=== PATIENT | male | born 1935 | race Caucasian/White ===

== ENCOUNTER → 2019-12-29 11:37 | Outpatient (CLI) | payer MEDICARE, OTHER, SELFPAY ==
[2020-01-02 14:07] LABS: Complement C3 87 mg/dL
[2020-01-02 15:08] LABS: ANA Screen, IFA NEGATIVE (NEGATIVE)
[2020-01-02 18:04] LABS: DNA (DS) Antibody <1 IU/mL
== END ==
PROVIDERS: PCP Internal Medicine; Referring Provider Internal Medicine; Visit Provider Internal Medicine
DX: R80.9 Proteinuria, unspecified (principal)
CPT/HCPCS: 36415; 83516; 83520; 86038; 86160; 86225; 86256

== ENCOUNTER 2020-02-09 04:23 | Emergency (ER) | payer MEDICARE, OTHER, SELFPAY ==
[2020-02-09] VITALS (20 sets, daily range): BP systolic 99–194; BP diastolic 56–116; PULSE 46–125; RESP 18–101; TEMP 36.3; O2SAT 93–121
--- NOTE | 2020-02-09 04:26 | DI.RAD.S_ITS ---
PROCEDURE: XR CHEST 1V INDICATIONS: labored breathing, possible pulmonary edema TECHNIQUE: One view of the chest was acquired. COMPARISON: [facility], CR, XR CHEST 2 VIEWS, 11/29/2019, 13:16. FINDINGS: Surgical changes and devices: None. Lungs and pleura: Extensive bilateral airspace consolidation. This is progressed from the prior study. No pleural effusions or pneumothorax. Mediastinum: Mediastinal contours appear normal. Cardiomegaly. Bones and chest wall: No suspicious bony lesions. Overlying soft tissues appear unremarkable. IMPRESSION: Interval progression of congestive heart failure. Dictated by: Giancarlo Barahona M.D. on 02/09/2020 at 7:44 Approved by: Giancarlo Barahona M.D. on 02/09/2020 at 7:45
[2020-02-09] MEDS: dilTIAZem 5 MG/ML SDV 10 MG IV (04:38)
[2020-02-09] MEDS: FUROSEMIDE 40 MG/4 ML VIAL IV (04:40)
[2020-02-09 04:53] LABS: Add Manual Diff / Slide Review NO; Basophils Absolute Auto 100 /uL (0-100); Basophils Percent Auto 0.5 % (0-2); Eosinophils Absolute Auto 0 /uL (0-450); Eosinophils Percent Auto 0.2 % (2-4); Hemoglobin 12.2 g/dL (13.5-17.5); Lymphocytes Absolute Auto 2800 /uL (1100-4500); Lymphocytes Percent Auto 17.2 % (25-40); Mean Corpuscular HGB Conc 32.1 % (30-36); Mean Corpuscular Hemoglobin 28.2 PG (26-34); Monocytes Absolute Auto 500 /uL (0-900); Monocytes Percent Auto 2.9 % (3-14); Neutrophils Absolute Auto 13000 /uL (1500-7000); Neutrophils Percent Auto 79.2 % (50-75); PCO2 ABG 30.5 mmHg (35-45); PO2 ABG 81 mmHg (80-100); Platelet Count 284 X10^3/uL (150-400); Red Blood Cell Count 4.32 X10^6/uL (4.5-5.9); Red Cell Distribution Width 16.6 % (11.6-14.8); White Blood Cell Count 16.4 X10^3/uL (4.5-11.0); pH ABG 7.36 (7.35-7.45)
[2020-02-09 04:54] LABS: Fractionated Inspired Oxygen 50; HCO3 ABG 17 mmol/L (22-26); Oxygen Saturation ABG 96 % (95-100); TCO2 ABG 18 mmol/L (21-31)
[2020-02-09 05:02] LABS: INR 1.2 (0.9-1.3)
[2020-02-09 05:04] LABS: PTT Partial Thromboplastin Tim 33 SECONDS (26.4-36.2)
[2020-02-09 05:07] LABS: Creatine Kinase 41 U/L (55-170)
[2020-02-09 05:08] LABS: Alanine Aminotransferase 26 IU/L (<50); Albumin 3.9 g/dL (3.5-5.0); Albumin Globulin Ratio 1.2 (1.0-2.8); Alkaline Phosphatase 166 U/L (38-126); Aspartate Aminotransferase 47 IU/L (17-59); BUN Creatinine Ratio 32.7 (6-22); Bilirubin Total 1.1 mg/dL (0.2-1.3); Blood Urea Nitrogen 34 mg/dL (9-20); Calcium 9.3 mg/dL (8.4-10.2); Carbon Dioxide 20 mmol/L (22-32); Chloride 102 mmol/L (98-107); Estimated Glomerular Filt Rate > 60.0 mL/min (>60); Globulin 3.3 g/dL (1.7-4.1); Glucose 215 mg/dL (80-110); HEMOLYSIS < 15 (0-50); Lactate Dehydrogenase 571 U/L (313-618); Potassium 4.2 mmol/L (3.4-5.1); Sodium 136 mmol/L (137-145); Total Protein 7.2 g/dL (6.3-8.2)
[2020-02-09 05:13] LABS: Lactate (Lactic Acid) 4.1 mmol/L (0.7-2.1)
[2020-02-09 05:20] LABS: NT-proBNP (BNP-Adult 18+) 16600 pg/mL (<450); Troponin I 0.037 ng/mL (0.01-0.034)
[2020-02-09] MEDS: LORazepam 2 MG/ML INJ 1 MG IV (05:28)
[2020-02-09] MEDS: MORPHINE 4 MG/ML INJ IV (05:28)
[2020-02-09 06:05] LABS: Influenza A - CEPHEID Flu A NEGATIVE (NEGATIVE); Influenza B - CEPHEID Flu B NEGATIVE (NEGATIVE)
[2020-02-09 06:07] LABS: Bacteria Urine None Seen; RBC Urine None Seen (0-5/HPF); WBC Urine None Seen (0-5/HPF)
[2020-02-09 06:08] LABS: Appearance Urine UA CLEAR; Bilirubin Urine UA NEGATIVE (NEGATIVE); Color Urine UA YELLOW; Glucose Urine UA NEGATIVE (Negative); Ketones Urine UA NEGATIVE (NEGATIVE); Leukocyte Esterase Urine UA NEGATIVE (NEGATIVE); Nitrite Urine UA NEGATIVE (Negative); Occult Blood Urine UA NEGATIVE (Negative); Protein Urine UA NEGATIVE (Negative); Specific Gravity Urine UA 1.015 (1.000-1.035); Urobilinogen Urine UA 0.2 E.U./dL (0.2)
[2020-02-09 06:34] LABS: Culture Indicated Urine Cult Not Indicated
--- NOTE | 2020-02-09 06:34 | ED_ITS ---
HPI - Chest Pain General Chief Complaint: Shortness of Breath/Dyspnea Stated Complaint: Flash Pulmonary Edema Time Seen by Provider: 02/09/20 04:30 History of Present Illness HPI narrative: HPI: The patient is an 84-year-old male who was transferred to the emergency department by EMS on BiPAP after the patient presented with flash pulmonary edema. The patient is on Eliquis with atrial fibrillation. The patient had acute rapid atrial fibrillation per the paramedics with frothy blood -tinged sputum. The patient was so short of breath he was unable to provide any significant history on his own. At this time the patient states that he has had a recent sinus infection with a persistent cough that has been on antibiotics per his primary care physician. He denies any chest pain. He just complains of shortness of breath and difficulty in breathing. He denies any fever chills or sweats as well as any headache. He has had sinus congestion and nasal drainage. He has had a cough that has been nonproductive of any sputum until tonight when he developed his acute shortness of breath. He has had rapid heart rate with palpitations and has been intermittently dizzy lightheaded and exhausted. He has had no abdominal pain nausea or vomiting or any urinary symptoms. Related Data Allergies Allergy/AdvReac Type Severity Reaction Status Date / Time No Known Drug Allergies Allergy Verified 02/09/20 04:47 Review of Systems Review of Systems Narrative: His review of systems were all negative that we could obtain other than those mentioned in the history of present illness. Exam Narrative Exam Narrative: PHYSICAL EXAM: CONSTITUTIONAL: Awake, Alert, in acute respiratory extremis on BiPAP. The patient looks ill HEAD: AT/NC EENT: PERRL, FROM of eyes, no discharge, No epistaxis or nasal drainage Oral mucosa is moist and pink, posterior pharynx is without erythema or exudate. The patient is coughing with pink frothy sputum. NECK: Supple, there are is jugular venous distention., Trachea is midline without stridor, no palpable LN . SPINE: No gross deformity, no palpable tenderness of the cervical, thoracic, lum bar or sacral spine. No CVA tenderness. THORAX: No deformity, retractions, chest wall tenderness, LUNGS: Diffuse inspiratory crackles with diffuse expiratory all rhonchi and chest congestion with rattling. HEART: Irregular irregular heart distant no appreciable murmur tachycardic and very irregular ABDOMEN: Soft, non-tender, normal bowel sounds without guarding, rebound, rigidity or palpable mass EXTREMITIES: No cyanosis or tender but there is trace to 1+ pitting edema of the lower extremities. SKIN: No rash, bruising, petechiae or purpura. NEURO: Awake, alert, conversive, cranial nerves II-XII are symmetrical and normal, moves all 4 extremities Initial Vital Signs Initial Vital Signs: Vital Signs Blood Pressure 179/116 H 02/09/20 04:50 Course Course Course Narrative: 0620 completed inserting a right subclavian IV. X-ray checked up on position reveals that the catheters going up the patient's neck into his of right eye internal jugular vein. I will attempt repositioning at. At 5:17 a.m. I discussed the patient with his direct marketing intern Dr. Brito who recommended that I call the transfer center and have the patient admitted to the intensive care unit at [facility]. According to the transfer center [facility] has no intensive care unit beds they are all being used to treat patients with Covid -19. I discussed the patient with the patient's and she prefers that we try admitting the patient to [facility] Intensive Care Unit. They have been called. 0655 CXR read by the [facility] Radiology revealed cardiomegaly . Pericardial effusion can provide the same appearance. Mixed interstitial and alveolar infiltrates bilaterally may represent pulmonary edema. Small right pleural effusion. Pneumonia cannot be ruled out. Influenza a and influenza B are negative. A repeat lactic acid has been ordered on the patient. Two blood cultures will be obtained on the patient. The patient will be administered Rocephin and Zithromax IV in case the patient has a combination of pulmonary edema and pneumonia. [address] [facility] was called to find out if they would accept patient. The patient will require intensive care unit. 0754: Spoke with the admitting hospitalist at [facility] Dr. Parikh who states that this patient sounds very complicated and more complicated than a routine ICU patient. He states that he is going to have the inspector balance bridge call because the patient may be to complicated for their intensive care unit. A summary of his laboratories at this time reveals that he has an initial white blood count of 16.4 1079% neutrophils 17.2% lymphocytes. His arterial blood ga ses revealed a pH is 7.36 a pCO2 of 30.5 a PO2 of 81 oxygen saturation 96% FiO2 50% on BiPAP. His creatinine is greater than 60 lactate was initially 4.1 and has significantly improved to 1.8. The patient's troponin is elevated at 0.[address] segment changes on the EKG suggesting a non STEMI. The patient's CPK is 41. The patient is already on Eliquis. His procalcitonin is less than 0.0 5 . [place] [address]. Barrientos virus swab remains pending however influenza a and influenza B were negative. Clinically the patient has what appears to be flash pulmonary edema with acute congestive heart failure. However, because his white blood count is elevated lactic acid was initially elevated the patient was treated as though he may be having patchy pneumonia with possible pulmonary infection, the patient was administered 1 g of ceftriaxone and 500 of Zithromax. The patient did have a transient cardiac arrest with V-tach and arm collapse becoming unresponsive. 2-3 compressions of CPR was initiated and the patient woke up and regained consciousness. The patient was loaded with 150 mg of amiodarone followed by an amiodarone infusion at 1 milligram/minute. To reduce the afterload the patient's blood pressure was 175 systolic torr, 10 mg of hydralazine was administered to the patient and his blood pressure dropped and improved initially to 150-145. I discussed the patient with [facility] intensive care doctor, Dr. Lo who has accepted the patient being transferred to their institution an admitted to the intensive care unit. We have 2 functioning peripheral IVs on the patient. I informed that I placed a right subclavian triple-lumen catheter, however it went up the internal jugular. He recommends that we pull it as long as the patient has 2 functioning peripheral IVs. Orders Ordered: ED Orders 02/09/20 04:25 EKG-12 Lead Stat 02/09/20 04:26 XR chest 1V Stat 02/09/20 04:40 Alanine Aminotransferase Stat C-Reactive Protein Quant Stat Complete Blood Count AUTO DIFF Stat Comprehensive Metabolic Panel Stat Creatine Kinase Stat Ferritin Stat Lactate (Lactic Acid) Stat Lactate Dehydrogenase Stat Magnesium Stat NT-proBNP (BNP-Adult 18+) Stat Partial Thromboplastin Time Stat Procalcitonin Stat Prothrombin Time INR Stat Troponin I Stat 02/09/20 04:42 Arterial Blood Gas Stat 02/09/20 04:50 BiPAP Ventilatory Support RT PROTOCOL 02/09/20 05:10 Type and Screen Stat 02/09/20 05:20 Influenza A & B (PCR) Stat 02/09/20 05:26 UA Complete [Urinalysis and Microscopic] Stat 02/09/20 06:08 XR chest 1V Stat 02/09/20 07:01 Blood Culture Stat 02/09/20 07:28 EKG-12 Lead Stat Amiodarone HCl/Dextrose (Nexterone) 360 mg in 200 mls @ 33.333 mls/hr IV NOW ONE; Protocol Stop: 02/09/20 11:08 Discontinued Medications Diltiazem HCl (Cardizem) 10 mg IV NOW ONE Stop: 02/09/20 04:32 Last Admin: 02/09/20 04:38 Dose: 10 mg Documented by: IRENE Furosemide (Lasix) 40 mg IV NOW ONE Stop: 02/09/20 04:33 Furosemide (Lasix) 60 mg IV NOW ONE Stop: 02/09/20 05:40 Hydralazine HCl (Apresoline) 20 mg IV NOW ONE Stop: 02/09/20 05:22 Ceftriaxone Sodium/Dextrose (Rocephin) 1 gm in 50 mls @ 100 mls/hr IV NOW ONE Stop: 02/09/20 07:31 Azithromycin 500 mg/ Dextrose 250 mls @ 250 mls/hr IV NOW ONE Stop: 02/09/20 07:02 Lidocaine HCl (Xylocaine 1%) 20 ml INJ NOW ONE Stop: 02/09/20 05:22 Last Admin: 02/09/20 06:14 Dose: Not Given Documented by: IRENE Lidocaine HCl (Xylocaine 1% (Pf)) 10 ml INJ NOW ONE Stop: 02/09/20 06:38 Lorazepam (Ativan) 1 mg IV NOW ONE Stop: 02/09/20 05:23 Last Admin: 02/09/20 05:28 Dose: 1 mg Documented by: IRENE Methylprednisolone (Solu-Medrol 125 Mg Vial) 125 mg IV NOW ONE Stop: 02/09/20 07:15 Methylprednisolone (Solu-Medrol 125 Mg Vial) 125 mg IV NOW ONE Stop: 02/09/20 07:49 Morphine Sulfate (Morphine) 4 mg IV NOW ONE Stop: 02/09/20 05:23 Last Admin: 02/09/20 05:28 Dose: 4 mg Documented by: [email or web address] Nitroglycerin (Nitro-Bid) 1 inch TOP NOW ONE Stop: 02/09/20 04:33 Vital Signs Vital signs: Vital Signs - 8 hr 02/09/20 04:50 02/09/20 05:03 02/09/20 05:05 Pulse Rate 105 H 100 H Respiratory Rate 48 H 43 H Blood Pressure 179/116 H Blood Pressure [Left Arm] 172/79 H 164/91 H Pulse Oximetry 97 97 02/09/20 05:10 02/09/20 05:20 02/09/20 05:30 Pulse Rate 111 H 107 H 109 H Respiratory Rate 43 H 46 H 42 H Blood Pressure Blood Pressure [Left Arm] 168/109 H 169/84 H 194/86 H Pulse Oximetry 121 H 98 98 02/09/20 05:35 02/09/20 05:45 02/09/20 05:50 Pulse Rate 109 H 101 H 101 H Respiratory Rate 42 H 42 H 101 H Blood Pressure Blood Pressure [Left Arm] 173/94 H 159/83 H 150/69 H Pulse Oximetry 98 99 98 02/09/20 05:55 02/09/20 06:08 Pulse Rate 98 H 46 L Respiratory Rate 40 H 46 H Blood Pressure Blood Pressure [Left Arm] 121/65 181/92 H Pulse Oximetry 99 98 MDM - Chest Pain Medical Records Data Attestation: I reviewed the patient's medical records. Lab Data Attestation: I reviewed the patient's lab results. Result diagrams: 02/09/20 04:40 02/09/20 04:40 Labs: Lab Results 02/09/20 02/09/20 02/09/20 Range/Units 04:40 04:40 04:40 WBC 16.4 H (4.5-11.0) X10^3/uL RBC 4.32 L (4.5-5.9) X10^6/uL Hgb 12.2 L (13.5-17.5) g/dL Hct 38.0 L (41-53) % MCV 88.0 (80-100) fL MCH 28.2 (26-34) PG MCHC 32.1 (30-36) % RDW 16.6 H (11.6-14.8) % Plt Count 284 (150-400) X10^3/uL Neut % (Auto) 79.2 H (50-75) % Lymph % (Auto) 17.2 L (25-40) % [place] % (Auto) 2.9 L (3-14) % Eos % (Auto) 0.2 L (2-4) % Baso % (Auto) 0.5 (0-2) % Neut # (Auto) 51047 H (3893-3071) /uL Lymph # (Auto) 2800 (0741-1880) /uL [place] # (Auto) 500 (0-900) /uL Eos # (Auto) 0 (0-450) /uL Baso # (Auto) 100 (0-100) /uL PT (10.1-12.7) SECONDS INR (0.9-1.3) APTT (26.4-36.2) SECONDS ABG pH (7.35-7.45) ABG pCO2 (35-45) mmHg ABG pO2 (80-100) mmHg ABG HCO3 (22-26) mmol/L ABG Total CO2 (21-31) mmol/L ABG O2 Saturation (95-100) % ABG Base Excess (-2-2) mmol/L FiO2 Sodium 136 L (137-145) mmol/L Potassium 4.2 (3.4-5.1) mmol/L Chloride 102 (98-107) mmol/L Carbon Dioxide 20 L (22-32) mmol/L BUN 34 H (9-20) mg/dL Creatinine 1.04 (0.66-1.25) mg/dL Estimated GFR > 60.0 (>60) mL/min BUN/Creatinine Ratio 32.7 H (6-22) Glucose 215 H (80-110) mg/dL Lactate (0.7-2.1) mmol/L Calcium 9.3 (8.4-10.2) mg/dL Magnesium 2.0 (1.6-2.3) mg/dL Total Bilirubin 1.1 (0.2-1.3) mg/dL AST 47 (17-59) IU/L ALT 26 (<50) IU/L Alkaline Phosphatase 166 H (38-126) U/L Lactate Dehydrogenase (313-618) U/L Total Creatine Kinase 41 L (55-170) U/L Troponin I 0.037 H (0.01-0.034) ng/mL C-Reactive Protein (<1.0) mg/dL NT-Pro-B Natriuret Pep 72695 H (<450) pg/mL Total Protein 7.2 (6.3-8.2) g/dL Albumin 3.9 (3.5-5.0) g/dL Globulin 3.3 (1.7-4.1) g/dL Albumin/Globulin Ratio 1.2 (1.0-2.8) Procalcitonin (<0.5) ng/mL Urine Color Urine Appearance Urine pH (4.5-8.0) Ur Specific [place] (1.000-1.035) Urine Protein (Negative) Urine Glucose (UA) (Negative) g/dL Urine Ketones (NEGATIVE) Urine Occult Blood (Negative) Urine Nitrate (Negative) Urine Bilirubin (NEGATIVE) Urine Urobilinogen (0.2) E.U./dL Ur Leukocyte Esterase (NEGATIVE) Urine RBC (0-5/HPF) Urine WBC (0-5/HPF) Urine Bacteria (None) Ur Culture Indicated? Influenza A (RT-PCR) (NEGATIVE) Influenza B (RT-PCR) (NEGATIVE) Blood Type Antibody Screen 02/09/20 02/09/20 02/09/20 Range/Units 04:40 04:40 04:40 WBC (4.5-11.0) X10^3/uL RBC (4.5-5.9) X10^6/uL Hgb (13.5-17.5) g/dL Hct (41-53) % MCV (80-100) fL MCH (26-34) PG MCHC (30-36) % RDW (11.6-14.8) % Plt Count (150-400) X10^3/uL Neut % (Auto) (50-75) % Lymph % (Auto) (25-40) % [place] % (Auto) (3-14) % Eos % (Auto) (2-4) % Baso % (Auto) (0-2) % Neut # (Auto) (1436-2992) /uL Lymph # (Auto) (2184-5851) /uL [place] # (Auto) (0-900) /uL Eos # (Auto) (0-450) /uL Baso # (Auto) (0-100) /uL PT 14.0 H (10.1-12.7) SECONDS INR 1.2 (0.9-1.3) APTT 33 (26.4-36.2) SECONDS ABG pH (7.35-7.45) ABG pCO2 (35-45) mmHg ABG pO2 (80-100) mmHg ABG HCO3 (22-26) mmol/L ABG Total CO2 (21-31) mmol/L ABG O2 Saturation (95-100) % ABG Base Excess (-2-2) mmol/L FiO2 Sodium (137-145) mmol/L Potassium (3.4-5.1) mmol/L Chloride (98-107) mmol/L Carbon Dioxide (22-32) mmol/L BUN (9-20) mg/dL Creatinine (0.66-1.25) mg/dL Estimated GFR (>60) mL/min BUN/Creatinine Ratio (6-22) Glucose (80-110) mg/dL Lactate 4.1 H* (0.7-2.1) mmol/L Calcium (8.4-10.2) mg/dL Magnesium (1.6-2.3) mg/dL Total Bilirubin (0.2-1.3) mg/dL AST (17-59) IU/L ALT (<50) IU/L Alkaline Phosphatase (38-126) U/L Lactate Dehydrogenase 571 (313-618) U/L Total Creatine Kinase (55-170) U/L Troponin I (0.01-0.034) ng/mL C-Reactive Protein (<1.0) mg/dL NT-Pro-B Natriuret Pep (<450) pg/mL Total Protein (6.3-8.2) g/dL Albumin (3.5-5.0) g/dL Globulin (1.7-4.1) g/dL Albumin/Globulin Ratio (1.0-2.8) Procalcitonin (<0.5) ng/mL Urine Color Urine Appearance Urine pH (4.5-8.0) Ur Specific [place] (1.000-1.035) Urine Protein (Negative) Urine Glucose (UA) (Negative) g/dL Urine Ketones (NEGATIVE) Urine Occult Blood (Negative) Urine Nitrate (Negative) Urine Bilirubin (NEGATIVE) Urine Urobilinogen (0.2) E.U./dL Ur Leukocyte Esterase (NEGATIVE) Urine RBC (0-5/HPF) Urine WBC (0-5/HPF) Urine Bacteria (None) Ur Culture Indicated? Influenza A (RT-PCR) (NEGATIVE) Influenza B (RT-PCR) (NEGATIVE) Blood Type Antibody Screen 02/09/20 02/09/20 02/09/20 Range/Units 04:40 04:40 04:42 WBC (4.5-11.0) X10^3/uL RBC (4.5-5.9) X10^6/uL Hgb (13.5-17.5) g/dL Hct (41-53) % MCV (80-100) fL MCH (26-34) PG MCHC (30-36) % RDW (11.6-14.8) % Plt Count (150-400) X10^3/uL Neut % (Auto) (50-75) % Lymph % (Auto) (25-40) % [place] % (Auto) (3-14) % Eos % (Auto) (2-4) % Baso % (Auto) (0-2) % Neut # (Auto) (4471-3918) /uL Lymph # (Auto) (0276-0199) /uL [place] # (Auto) (0-900) /uL Eos # (Auto) (0-450) /uL Baso # (Auto) (0-100) /uL PT (10.1-12.7) SECONDS INR (0.9-1.3) APTT (26.4-36.2) SECONDS ABG pH 7.36 (7.35-7.45) ABG pCO2 30.5 L (35-45) mmHg ABG pO2 81 (80-100) mmHg ABG HCO3 17 L (22-26) mmol/L ABG Total CO2 18 L (21-31) mmol/L ABG O2 Saturation 96 (95-100) % ABG Base Excess -8.0 L (-2-2) mmol/L FiO2 50 Sodium (137-145) mmol/L Potassium (3.4-5.1) mmol/L Chloride (98-107) mmol/L Carbon Dioxide (22-32) mmol/L BUN (9-20) mg/dL Creatinine (0.66-1.25) mg/dL Estimated GFR (>60) mL/min BUN/Creatinine Ratio (6-22) Glucose (80-110) mg/dL Lactate (0.7-2.1) mmol/L Calcium (8.4-10.2) mg/dL Magnesium (1.6-2.3) mg/dL Total Bilirubin (0.2-1.3) mg/dL AST (17-59) IU/L ALT 26 (<50) IU/L Alkaline Phosphatase (38-126) U/L Lactate Dehydrogenase (313-618) U/L Total Creatine Kinase (55-170) U/L Troponin I (0.01-0.034) ng/mL C-Reactive Protein 0.7 (<1.0) mg/dL NT-Pro-B Natriuret Pep (<450) pg/mL Total Protein (6.3-8.2) g/dL Albumin (3.5-5.0) g/dL Globulin (1.7-4.1) g/dL Albumin/Globulin Ratio (1.0-2.8) Procalcitonin < 0.05 (<0.5) ng/mL Urine Color Urine Appearance Urine pH (4.5-8.0) Ur Specific [place] (1.000-1.035) Urine Protein (Negative) Urine Glucose (UA) (Negative) g/dL Urine Ketones (NEGATIVE) Urine Occult Blood (Negative) Urine Nitrate (Negative) Urine Bilirubin (NEGATIVE) Urine Urobilinogen (0.2) E.U./dL Ur Leukocyte Esterase (NEGATIVE) Urine RBC (0-5/HPF) Urine WBC (0-5/HPF) Urine Bacteria (None) Ur Culture Indicated? Influenza A (RT-PCR) (NEGATIVE) Influenza B (RT-PCR) (NEGATIVE) Blood Type Antibody Screen 02/09/20 02/09/20 02/09/20 Range/Units 05:10 05:20 05:26 WBC (4.5-11.0) X10^3/uL RBC (4.5-5.9) X10^6/uL Hgb (13.5-17.5) g/dL Hct (41-53) % MCV (80-100) fL MCH (26-34) PG MCHC (30-36) % RDW (11.6-14.8) % Plt Count (150-400) X10^3/uL Neut % (Auto) (50-75) % Lymph % (Auto) (25-40) % [place] % (Auto) (3-14) % Eos % (Auto) (2-4) % Baso % (Auto) (0-2) % Neut # (Auto) (9862-4506) /uL Lymph # (Auto) (7782-4917) /uL [place] # (Auto) (0-900) /uL Eos # (Auto) (0-450) /uL Baso # (Auto) (0-100) /uL PT (10.1-12.7) SECONDS INR (0.9-1.3) APTT (26.4-36.2) SECONDS ABG pH (7.35-7.45) ABG pCO2 (35-45) mmHg ABG pO2 (80-100) mmHg ABG HCO3 (22-26) mmol/L ABG Total CO2 (21-31) mmol/L ABG O2 Saturation (95-100) % ABG Base Excess (-2-2) mmol/L FiO2 Sodium (137-145) mmol/L Potassium (3.4-5.1) mmol/L Chloride (98-107) mmol/L Carbon Dioxide (22-32) mmol/L BUN (9-20) mg/dL Creatinine (0.66-1.25) mg/dL Estimated GFR (>60) mL/min BUN/Creatinine Ratio (6-22) Glucose (80-110) mg/dL Lactate (0.7-2.1) mmol/L Calcium (8.4-10.2) mg/dL Magnesium (1.6-2.3) mg/dL Total Bilirubin (0.2-1.3) mg/dL AST (17-59) IU/L ALT (<50) IU/L Alkaline Phosphatase (38-126) U/L Lactate Dehydrogenase (313-618) U/L Total Creatine Kinase (55-170) U/L Troponin I (0.01-0.034) ng/mL C-Reactive Protein (<1.0) mg/dL NT-Pro-B Natriuret Pep (<450) pg/mL Total Protein (6.3-8.2) g/dL Albumin (3.5-5.0) g/dL Globulin (1.7-4.1) g/dL Albumin/Globulin Ratio (1.0-2.8) Procalcitonin (<0.5) ng/mL Urine Color Yellow Urine Appearance Clear Urine pH 5.0 (4.5-8.0) Ur Specific [place] 1.015 (1.000-1.035) Urine Protein Negative (Negative) Urine Glucose (UA) Negative (Negative) g/dL Urine Ketones Negative (NEGATIVE) Urine Occult Blood Negative (Negative) Urine Nitrate Negative (Negative) Urine Bilirubin Negative (NEGATIVE) Urine Urobilinogen 0.2 (0.2) E.U./dL Ur Leukocyte Esterase Negative (NEGATIVE) Urine RBC None seen (0-5/HPF) Urine WBC None seen (0-5/HPF) Urine Bacteria None seen (None) Ur Culture Indicated? Cult not indicated Influenza A (RT-PCR) Flu a negative (NEGATIVE) Influenza B (RT-PCR) Flu b negative (NEGATIVE) Blood Type B Positive Antibody Screen Negative 02/09/20 Range/Units 06:35 WBC (4.5-11.0) X10^3/uL RBC (4.5-5.9) X10^6/uL Hgb (13.5-17.5) g/dL Hct (41-53) % MCV (80-100) fL MCH (26-34) PG MCHC (30-36) % RDW (11.6-14.8) % Plt Count (150-400) X10^3/uL Neut % (Auto) (50-75) % Lymph % (Auto) (25-40) % [place] % (Auto) (3-14) % Eos % (Auto) (2-4) % Baso % (Auto) (0-2) % Neut # (Auto) (1309-3382) /uL Lymph # (Auto) (4050-9331) /uL [place] # (Auto) (0-900) /uL Eos # (Auto) (0-450) /uL Baso # (Auto) (0-100) /uL PT (10.1-12.7) SECONDS INR (0.9-1.3) APTT (26.4-36.2) SECONDS ABG pH (7.35-7.45) ABG pCO2 (35-45) mmHg ABG pO2 (80-100) mmHg ABG HCO3 (22-26) mmol/L ABG Total CO2 (21-31) mmol/L ABG O2 Saturation (95-100) % ABG Base Excess (-2-2) mmol/L FiO2 Sodium (137-145) mmol/L Potassium (3.4-5.1) mmol/L Chloride (98-107) mmol/L Carbon Dioxide (22-32) mmol/L BUN (9-20) mg/dL Creatinine (0.66-1.25) mg/dL Estimated GFR (>60) mL/min BUN/Creatinine Ratio (6-22) Glucose (80-110) mg/dL Lactate 1.8 (0.7-2.1) mmol/L Calcium (8.4-10.2) mg/dL Magnesium (1.6-2.3) mg/dL Total Bilirubin (0.2-1.3) mg/dL AST (17-59) IU/L ALT (<50) IU/L Alkaline Phosphatase (38-126) U/L Lactate Dehydrogenase (313-618) U/L Total Creatine Kinase (55-170) U/L Troponin I (0.01-0.034) ng/mL C-Reactive Protein (<1.0) mg/dL NT-Pro-B Natriuret Pep (<450) pg/mL Total Protein (6.3-8.2) g/dL Albumin (3.5-5.0) g/dL Globulin (1.7-4.1) g/dL Albumin/Globulin Ratio (1.0-2.8) Procalcitonin (<0.5) ng/mL Urine Color Urine Appearance Urine pH (4.5-8.0) Ur Specific [place] (1.000-1.035) Urine Protein (Negative) Urine Glucose (UA) (Negative) g/dL Urine Ketones (NEGATIVE) Urine Occult Blood (Negative) Urine Nitrate (Negative) Urine Bilirubin (NEGATIVE) Urine Urobilinogen (0.2) E.U./dL Ur Leukocyte Esterase (NEGATIVE) Urine RBC (0-5/HPF) Urine WBC (0-5/HPF) Urine Bacteria (None) Ur Culture Indicated? Influenza A (RT-PCR) (NEGATIVE) Influenza B (RT-PCR) (NEGATIVE) Blood Type Antibody Screen ABG Data Attestation: I personally reviewed and interpreted this ABG as follows: Interpretation: The patient on BiPAP on 50% revealed than oxygen saturation 96% a PO2 of 81 a pCO2 of 30.5 and a pH is 7.364. These were obtained at 4:[address] the patient on non-rebreather mask high-flow oxygen and see what his oxygenation does. ECG Data Attestation: I personally reviewed and interpreted this ECG as follows: Interpretation: The patient's EKG obtained on February 08 at 04:2 9:57 a.m. of revealed an atrial fibrillation with multiple PVCs. The ventricular rate was rapid at 129+. The patient's QTC is prolonged at 498 milliseconds. The patient has left axis deviation. He has a Q-wave QS wave in lead V1 V2 with nonspecific slight ST segment elevations. The patient has a noisy baseline.. At 7:27 a.m. will repeat the EKG. Discharge Plan Departure Clinical Impression: Pulmonary edema with congestive heart failure, Essential hypertension, Hypoxia, Acidosis, lactic, V-tach Leucocytosis Qualifiers: Leukocytosis type: bandemia Qualified Code(s): D72.825 - Bandemia Referrals: Felipe Godfrey [Primary Care Provider] - ED Sign-out Cosign ED Attending Cosignature Attestation: I was immediately available in the department for consultation. This documentation has been reviewed and I agree with assessment and plan. Supervised by Akil Chopra MD
[2020-02-09 06:47] LABS: Reflexed Lactate in 2 Hours Y
[2020-02-09 06:55] LABS: Lactate 2HR (Lactic Acid Rflx) 1.8 mmol/L (0.7-2.1)
[2020-02-09 07:21] LABS: Procalcitonin < 0.05 ng/mL (<0.5)
[2020-02-09 07:37] LABS: Alanine Aminotransferase 26 IU/L (<50); C-Reactive Protein Quant 0.7 mg/dL (<1.0)
[2020-02-09] MEDS: AZITHROMYCIN 500 MG in DEXTROSE 5% IN WATER 250 ML IV (08:03)
[2020-02-09 08:10] LABS: Ferritin 381 ng/mL (18-464)
--- NOTE | 2020-02-09 08:12 | PC.NURSE ---
Addendum entered by Mago Bentley R.N. 02/09/20 08:26: Paper chart covers from 0445 to 0700. Original Note: In patient room, at 0437 when alarms sounded. Hr at 300, pt unresponsive with no pulse. Code blue called and cpr started. aproximatly 20 seconds of CPR performed when patient became responsive and pushed this RN's hands off of chest. Pt's states I only fell asleep. Provider in room, See new orders on Code blue sheet in paper chart.
[2020-02-09] MEDS: methylPREDNISolone 125 MG/2 ML VIAL IV (08:14)
--- NOTE | 2020-02-09 08:15 | PC.NURSE ---
SPouse's in to see patient. STates yesterday, Pt had swollen face, had called primary care provider, states he was discontinued from his lisonipril and started on prednisone and benadryl. Spouse reports Pt's facial swelling had decreased before episode.
[2020-02-09] MEDS: CEFTRIAXONE 1 GM/50 ML FROZ.PIGGY IV (08:26)
--- NOTE | 2020-02-09 10:12 | PC.NURSE ---
Called [facility] and gave report to Samira in the ICU
--- NOTE | 2020-02-09 10:12 | PC.NURSE ---
Gave report to Leslie with [facility] transport
[2020-02-09] MEDS: AMIODARONE 541 MG/300.56 ML PIGGYBACK 16.7 MG IV (10:30)
--- NOTE | 2020-02-09 12:29 | PC.NURSE ---
Patient's black wrist watch found in room after transfer to another hospital. Placed watch in valuables bag and turned into Nurse Coordinator. Called to notify of watch. will come in on Wednesday and pick watch up from hospital.
[2020-02-12 06:03] LABS: COVID19 Sendout Not Detected (Not Detected)
== END 2020-02-09 10:33 | disposition short-term general hospital (02) ==
PROVIDERS: Emergency Medicine; Emergency Provider Emergency Medicine; PCP Internal Medicine
DX: I11.0 Hypertensive heart disease with heart failure (principal); I50.1 Left ventricular failure, unspecified; R09.02 Hypoxemia; E87.2 Acidosis; D72.825 Bandemia; I47.2 Ventricular tachycardia; R06.02 Shortness of breath; R05 Cough; I48.91 Unspecified atrial fibrillation; Z79.01 Long term (current) use of anticoagulants
CPT/HCPCS: 36415; 36600; 51701; 71045; 80053; 81001; 82550; 82728; 82805; 83605; 83615; 83735; 83880; 84145; 84460; 84484; 85025; 85610; 85730; 86140; 86850; 86900; 86901; 87040; 87502; 93005; 94660; 96365; 96366; 96368; 96375; 99285; 99291; 99292; J0282; J0360; J1940; J2060; J2270; J2930

== ENCOUNTER → 2020-07-03 06:51 | Outpatient (CLI) | payer MEDICARE, OTHER, SELFPAY ==
[2020-02-09 04:50] VITALS: PULSE 125; RESP 42; O2SAT 96
[2020-07-03 08:11] LABS: Hematocrit 34.3 % (41-53); Hemoglobin 11.2 g/dL (13.5-17.5); Mean Corpuscular HGB Conc 32.8 % (30-36); Mean Corpuscular Hemoglobin 27.5 PG (26-34); Mean Corpuscular Volume 83.8 fL (80-100); Platelet Count 112 X10^3/uL (150-400); Red Blood Cell Count 4.09 X10^6/uL (4.5-5.9); Red Cell Distribution Width 22.4 % (11.6-14.8)
[2020-07-03 08:34] LABS: BUN Creatinine Ratio 20.4 (6-22); Blood Urea Nitrogen 23 mg/dL (9-20); Calcium 9.2 mg/dL (8.4-10.2); Carbon Dioxide 28 mmol/L (22-32); Chloride 101 mmol/L (98-107); Estimated Glomerular Filt Rate > 60.0 mL/min (>60); Glucose 99 mg/dL (80-110); HEMOLYSIS < 15 (0-50); Potassium 4.2 mmol/L (3.4-5.1); Sodium 135 mmol/L (137-145)
[2020-07-03 08:43] LABS: NT-proBNP (BNP-Adult 18+) 3000 pg/mL (<450)
== END ==
PROVIDERS: PCP Family Medicine; Referring Provider Internal Medicine; Visit Provider Internal Medicine
DX: I50.9 Heart failure, unspecified (principal)
CPT/HCPCS: 36415; 80048; 83880; 85027

== ENCOUNTER → 2020-12-23 10:57 | Outpatient (CLI) | payer MEDICARE, OTHER, SELFPAY ==
[2020-02-09 04:50] VITALS: PULSE 125; RESP 42; O2SAT 96
== END ==
PROVIDERS: PCP Family Medicine; Referring Provider Nurse Practitioner Family; Visit Provider Family Medicine
DX: I73.9 Peripheral vascular disease, unspecified (principal); R60.0 Localized edema; Z79.02 Long term (current) use of antithrombotics/antiplatelets; Z79.01 Long term (current) use of anticoagulants
CPT/HCPCS: 11042; 99204; 99213

== ENCOUNTER → 2020-12-25 09:36 | Outpatient (CLI) | payer MEDICARE, OTHER, SELFPAY ==
[2020-02-09 04:50] VITALS: PULSE 125; RESP 42; O2SAT 96
== END ==
PROVIDERS: PCP Family Medicine; Referring Provider Family Medicine; Visit Provider Family Medicine
DX: S81.811A Laceration without foreign body, right lower leg, initial encounter (principal)
CPT/HCPCS: 29581

== ENCOUNTER → 2021-01-01 08:48 | Outpatient (CLI) | payer MEDICARE, OTHER, SELFPAY ==
[2020-02-09 04:50] VITALS: PULSE 125; RESP 42; O2SAT 96
== END ==
PROVIDERS: PCP Family Medicine; Referring Provider Family Medicine; Visit Provider Family Medicine
DX: I87.2 Venous insufficiency (chronic) (peripheral) (principal); S81.801A Unspecified open wound, right lower leg, initial encounter; R60.0 Localized edema; Z79.01 Long term (current) use of anticoagulants
CPT/HCPCS: 29581; 99213

== ENCOUNTER → 2021-01-08 10:11 | Outpatient (CLI) | payer MEDICARE, OTHER, SELFPAY ==
[2020-02-09 04:50] VITALS: PULSE 125; RESP 42; O2SAT 96
== END ==
PROVIDERS: PCP Family Medicine; Referring Provider Family Medicine; Visit Provider Family Medicine
DX: S81.801D Unspecified open wound, right lower leg, subsequent encounter (principal); R60.0 Localized edema; Z79.02 Long term (current) use of antithrombotics/antiplatelets; Z79.01 Long term (current) use of anticoagulants
CPT/HCPCS: 99212

== ENCOUNTER → 2021-08-14 14:57 | Outpatient (CLI) | payer MEDICARE, OTHER, SELFPAY ==
[2020-02-09 04:50] VITALS: PULSE 125; RESP 42; O2SAT 96
== END ==
PROVIDERS: Family Provider Family Medicine; PCP Family Medicine; Referring Provider Family Medicine; Visit Provider Family Medicine
DX: S81.801A Unspecified open wound, right lower leg, initial encounter (principal); S81.802A Unspecified open wound, left lower leg, initial encounter; S71.102A Unspecified open wound, left thigh, initial encounter; S51.002A Unspecified open wound of left elbow, initial encounter; S61.402A Unspecified open wound of left hand, initial encounter; Z79.01 Long term (current) use of anticoagulants; Z79.02 Long term (current) use of antithrombotics/antiplatelets; L08.9 Local infection of the skin and subcutaneous tissue, unspecified
CPT/HCPCS: 11042; 11045; 87070; 87077; 87186; 87205; 99214

== ENCOUNTER → 2021-08-21 14:58 | Outpatient (CLI) | payer MEDICARE, OTHER, SELFPAY ==
[2020-02-09 04:50] VITALS: PULSE 125; RESP 42; O2SAT 96
== END ==
PROVIDERS: Family Provider Family Medicine; PCP Family Medicine; Referring Provider Family Medicine; Visit Provider Family Medicine
DX: S61.402A Unspecified open wound of left hand, initial encounter (principal); S51.002A Unspecified open wound of left elbow, initial encounter; S81.801A Unspecified open wound, right lower leg, initial encounter; S81.802A Unspecified open wound, left lower leg, initial encounter; S71.102A Unspecified open wound, left thigh, initial encounter; Z79.02 Long term (current) use of antithrombotics/antiplatelets; Z79.01 Long term (current) use of anticoagulants; B95.7 Other staphylococcus as the cause of diseases classified elsewhere
CPT/HCPCS: 11042; 11045; 99213

== ENCOUNTER → 2021-08-28 09:49 | Outpatient (CLI) | payer MEDICARE, OTHER, SELFPAY ==
[2020-02-09 04:50] VITALS: PULSE 125; RESP 42; O2SAT 96
== END ==
PROVIDERS: Family Provider Family Medicine; PCP Family Medicine; Referring Provider Family Medicine; Visit Provider Family Medicine
DX: S61.402A Unspecified open wound of left hand, initial encounter (principal); Z79.02 Long term (current) use of antithrombotics/antiplatelets; Z79.01 Long term (current) use of anticoagulants
CPT/HCPCS: 99212; 99213

== ENCOUNTER → 2021-09-08 09:02 | Outpatient (CLI) | payer MEDICARE, OTHER, SELFPAY ==
[2020-02-09 04:50] VITALS: PULSE 125; RESP 42; O2SAT 96
== END ==
PROVIDERS: Family Provider Family Medicine; PCP Family Medicine; Referring Provider Family Medicine; Visit Provider Family Medicine
DX: S61.402A Unspecified open wound of left hand, initial encounter (principal); S81.801A Unspecified open wound, right lower leg, initial encounter; Z79.01 Long term (current) use of anticoagulants; Z79.02 Long term (current) use of antithrombotics/antiplatelets
CPT/HCPCS: 11042; 15275; 99213; Q4110

== ENCOUNTER → 2021-09-15 08:36 | Outpatient (CLI) | payer MEDICARE, OTHER, SELFPAY ==
[2020-02-09 04:50] VITALS: PULSE 125; RESP 42; O2SAT 96
== END ==
PROVIDERS: Family Provider Family Medicine; PCP Family Medicine; Referring Provider Family Medicine; Visit Provider Family Medicine
DX: S61.412A Laceration without foreign body of left hand, initial encounter (principal); Z79.02 Long term (current) use of antithrombotics/antiplatelets; Z79.01 Long term (current) use of anticoagulants; S80.811A Abrasion, right lower leg, initial encounter
CPT/HCPCS: 97597; 99212; 99213

== ENCOUNTER → 2021-09-22 09:10 | Outpatient (CLI) | payer MEDICARE, OTHER, SELFPAY ==
[2020-02-09 04:50] VITALS: PULSE 125; RESP 42; O2SAT 96
== END ==
PROVIDERS: Family Provider Family Medicine; PCP Family Medicine; Referring Provider Family Medicine; Visit Provider Family Medicine
DX: Z79.02 Long term (current) use of antithrombotics/antiplatelets (principal); Z79.01 Long term (current) use of anticoagulants; S80.811A Abrasion, right lower leg, initial encounter; S60.512A Abrasion of left hand, initial encounter
CPT/HCPCS: 97597; 99212

== ENCOUNTER → 2021-09-29 10:55 | Outpatient (CLI) | payer MEDICARE, OTHER, SELFPAY ==
[2020-02-09 04:50] VITALS: PULSE 125; RESP 42; O2SAT 96
== END ==
PROVIDERS: Family Provider Family Medicine; PCP Family Medicine; Referring Provider Family Medicine; Visit Provider Family Medicine
DX: S80.811A Abrasion, right lower leg, initial encounter (principal); S80.811D Abrasion, right lower leg, subsequent encounter
CPT/HCPCS: 99212; 99214

== ENCOUNTER 2022-09-09 00:37 | Emergency (ER) | payer MEDICARE, OTHER, SELFPAY ==
[2020-02-09 04:50] VITALS: PULSE 125; RESP 42; O2SAT 96
[2022-09-09 00:45] VITALS: BP 166/72; PULSE 60; RESP 22; TEMP 36.5; O2SAT 98; BMI 22.6
--- NOTE | 2022-09-09 02:48 | ED_ITS ---
HPI - Recheck/Abnormal Lab/Rx General Chief Complaint: Recheck/Abnormal Lab/Rx Stated Complaint: HAD SURGERY RIGHT SIDE OF FACE BLEEDING Time Seen by Provider: 09/09/22 01:24 Source: patient Mode of arrival: Ambulatory History of Present Illness HPI narrative: 86-year-old male former smoker with history of skin cancer and recent dermatologic procedure on the right side of his face presents with significant bleeding from the incision site and saturated bandages. He states that he had a surgery on Wednesday was doing well and then bleeding started this evening. He is not dizzy nor weak or lightheaded. Denies any fever or chills. Denies any trauma or injury. He takes no blood thinners Related Data Allergies Allergy/AdvReac Type Severity Reaction Status Date / Time No Known Drug Allergies Allergy Verified 09/09/22 00:45 Review of Systems Review of Systems Narrative: GENERAL: Denies chills, fatigue, malaise, fever, sweats. HEENT: Denies sinus pain, ear pain, sore throat, difficulty swallowing, dizziness. RESPIRATORY: Denies dyspnea, cough, wheezing, hemoptysis, sputum. CARDIOVASCULAR: Denies chest pain, palpitations, orthopnea, edema, GASTROINTESTINAL: Denies nausea, vomiting, abdominal pain, diarrhea, constipation, melena. : Denies dysuria, frequency, incontinence, hematuria, urinary retention. MUSCULOSKELETAL: denies weakness, joint pain, or bony pain SKIN: See HPI NEUROLOGIC: Denies weakness, headache, numbness, change in speech, confusion, seizures, incoordination. PSYCHIATRIC: No concerning psychosocial issues. 12 point review of systems is negative except for those stated above Patient History Social History Smoking Status: Former smoker Smoking Status: Former smoker Substance Use Type: does not use Exam Narrative Exam Narrative: GENERAL: [86] year old patient appears stated age. Well-developed patient, in mild distress. GCS 15, large bandage on right side of face saturated with fresh blood and clots HEAD: Atraumatic. Normocephalic. EYES: Pupils equal round and reactive. Extraocular motions intact. No scleral icterus. No injection or drainage. ENT: Nose without bleeding, purulent drainage. Throat without erythema, tonsillar hypertrophy or exudate. Airway patent. NECK: Trachea midline. Non tender CARDIOVASCULAR: Regular rate and rhythm without murmurs, gallops, or rubs. RESPIRATORY: Clear to auscultation. Breath sounds equal bilaterally. No wheezes, rales, or rhonchi. GASTROINTESTINAL: Abdomen soft, non-tender, nondistended. EXTREMITIES: No edema or joint tenderness. BACK: Nontender without deformity or crepitance. No flank tenderness. NEURO: AOx3. SKIN: Bandage removed and there is no evidence of wound dehiscence, there are 2 locations that bleeding is noted the most significant just anterior to his orthodox there is brisk bleeding from the incision site which is easily stopped with pressure. There is no obvious arterial component. This was injected with lidocaine with epinephrine and a single 6 0 nylon suture placed for hemostasis only Initial Vital Signs Initial Vital Signs: Vital Signs Temperature 97.7 F 09/09/22 00:45 Pulse Rate 60 09/09/22 00:45 Respiratory Rate 22 09/09/22 00:45 Blood Pressure 166/72 H 09/09/22 00:45 Pulse Oximetry 98 09/09/22 00:45 Oxygen Delivery Method 09/09/22 00:45 Course Reevaluation(s) Reevaluation #1: Patient observed for 30 minutes after suture placed and no ongoing bleeding noted. Patient alert and oriented, no systemic findings such as dizziness, weakness or lightheadedness. No fever or chills. 1. New dressing placed, return precautions discussed and patient strongly encouraged to call the dermatology office later this morning to discuss follow-up options Vital Signs Vital signs: Vital Signs - 8 hr 09/09/22 00:45 Temperature 97.7 F Pulse Rate 60 Respiratory Rate 22 Blood Pressure 166/72 H Pulse Oximetry 98 Oxygen Delivery Method Room Air Discharge Plan Departure Patient Disposition: Home Clinical Impression: Bleeding from wound Instructions: DI for Post-Surgical Bleeding Activity Restrictions/Additional Instructions: *You have been diagnosed with [postsurgical bleeding which was easily controlled with pressure and a single suture] *What to do: *Please continue to take your regular medications as directed. [ ] New medication prescriptions sent to your pharmacy: [ ] [ ] New medication written as a paper prescription [ ] No new medications given *Please follow up with your primary care provider in 2-3 days, call for an appointment. Let them know you were seen in the Emergency Department and that we ask that you be seen in follow up. We will electronically transmit a record of today's note if your PCP is in our system *If you do not have a primary care provider please contact the [facility] Resource line at [phone]. They will ask some questions about your medical history and help get you set up with a doctor in the community. *Return to Emergency Department if you should have any new, worsening or concerning symptoms, such as [fever greater than 101 F, shaking chills, worsening pain, persistent vomiting or other bothersome symptoms] Referrals: Americo Carbajal MD [Primary Care Provider] -
[2022-09-09 03:55] VITALS: BP 146/75; PULSE 79; RESP 16; O2SAT 100
== END 2022-09-09 03:57 | disposition home or self-care (01) ==
PROVIDERS: Emergency Provider Emergency Medicine; Family Provider Family Medicine; PCP Family Medicine
DX: L76.21 Postprocedural hemorrhage of skin and subcutaneous tissue following a dermatologic procedure (principal)
CPT/HCPCS: 12011; 99281; 99282

== ENCOUNTER → 2023-11-24 09:49 | Outpatient (CLI) | payer MEDICARE, OTHER, SELFPAY ==
[2020-02-09 04:50] VITALS: PULSE 125; RESP 42; O2SAT 96
== END ==
LOC: WC 09:53
PROVIDERS: Family Provider Family Medicine; PCP Family Medicine; Referring Provider Physician Assistant; Visit Provider Surgery
DX: S70.311A Abrasion, right thigh, initial encounter (principal); I73.9 Peripheral vascular disease, unspecified; I25.10 Atherosclerotic heart disease of native coronary artery without angina pectoris
CPT/HCPCS: 93922; 97597; 99213

== ENCOUNTER → 2023-12-01 13:41 | Outpatient (CLI) | payer MEDICARE, OTHER, SELFPAY ==
[2020-02-09 04:50] VITALS: PULSE 125; RESP 42; O2SAT 96
== END ==
LOC: WC 13:49
PROVIDERS: Family Provider Family Medicine; PCP Family Medicine; Referring Provider Family Medicine; Visit Provider Surgery
DX: S71.112A Laceration without foreign body, left thigh, initial encounter (principal); L84 Corns and callosities; I73.9 Peripheral vascular disease, unspecified; I25.10 Atherosclerotic heart disease of native coronary artery without angina pectoris; I13.0 Hypertensive heart and chronic kidney disease with heart failure and stage 1 through stage 4 chronic kidney disease, or unspecified chronic kidney disease; N18.2 Chronic kidney disease, stage 2 (mild); I50.9 Heart failure, unspecified; Z95.5 Presence of coronary angioplasty implant and graft; Z95.810 Presence of automatic (implantable) cardiac defibrillator
CPT/HCPCS: 97597; 99213